=== PATIENT | male | born 1990 | race Caucasian/White ===

== ENCOUNTER 2024-02-11 22:15 | Emergency (ER) | payer OTHER, MEDICAID ==
[2024-02-11 22:28] LABS: BASOPHILS ABSOLUTE AUTO 0.1 x10^3/uL (0.0-0.2); BASOPHILS PERCENT AUTO 0.9 % (0.2-1.2); EOSINOPHILS ABSOLUTE AUTO 0.7 x10^3/uL (0.0-0.5); HEMATOCRIT 46.9 % (40.0-52.0); HEMOGLOBIN 16.7 g/dL (14.0-18.0); IMMATURE GRAN ABSOLUTE AUTO 0.04 x10^3/uL (0.00-0.07); LYMPHOCYTES ABSOLUTE AUTO 2.9 x10^3/uL (1.0-4.8); LYMPHOCYTES PERCENT AUTO 31.5 % (25.0-50.0); MEAN CORPUSCULAR HEMOGLOBIN 30.8 pg (26.0-32.0); MEAN CORPUSCULAR HGB CONC 35.6 g/dL (32.0-36.0); MEAN CORPUSCULAR VOLUME 86.4 fL (78.0-93.0); MONOCYTES ABSOLUTE AUTO 0.6 x10^3/uL (0.0-0.8); MONOCYTES PERCENT AUTO 6.1 % (2.0-11.0); NEUTROPHILS ABSOLUTE AUTO 4.8 x10^3/uL (1.8-7.7); NEUTROPHILS PERCENT AUTO 53.1 % (50.0-80.0); PLATELET COUNT,PLT 321 x10^3/uL (130-400); RED BLOOD CELL COUNT 5.43 x10^6/uL (4.5-6.0); WHITE BLOOD CELL COUNT,WBC 9.1 x10^3/uL (4.0-10.0)
[2024-02-11] MEDS: Sodium Chloride 0.9% 1,000 ML IV ONE (22:40)
[2024-02-11 22:49] LABS: A/G RATIO 1.18; ALBUMIN 4.5 g/dL (3.4-5.0); ALKALINE PHOSPHATASE 53 U/L (46-116); ASPARTATE AMNIOTRANSFERASE,AST 41 U/L (15-37); BILIRUBIN TOTAL 0.9 mg/dL (0.2-1.0); BLOOD UREA NITROGEN,BUN 9 mg/dL (7-18); CARBON DIOXIDE,CO2 29 mmol/L (21-32); CHLORIDE,CL 104 mmol/L (98-107); CREATININE 1.4 mg/dL (0.70-1.30); ETHANOL BLOOD MEDICAL 221 mg/dL (0-3); GLUCOSE RANDOM 97 mg/dL (70-99); POTASSIUM,K 3.4 mmol/L (3.5-5.1); PROTEIN TOTAL,TP 8.3 g/dL (6.4-8.2); SODIUM,NA 142 mmol/L (136-145)
[2024-02-11 22:53] LABS: ANION GAP 12.4 mmol/L (5-15); ESTIMATED GFR 68 mL/min (>=60)
[2024-02-11] MEDS: Iopamidol 612 MG/ML 100 ML Bottle IVPUSH ONE (23:22)
[2024-02-11] MEDS: Diphtheria,Pertussis(Acell),Tetanus Vaccine 0.5 ML Syringe IM ONE (23:50)
[2024-02-13 13:22] LABS: ALANINE AMINOTRANSFERASE,ALT 61 U/L (16-63)
== END 2024-02-12 00:14 | disposition home or self-care (01) ==
LOC: VM.ED 22:17
DX: S93.402A Sprain of unspecified ligament of left ankle, initial encounter (principal); S00.03XA Contusion of scalp, initial encounter; S00.81XA Abrasion of other part of head, initial encounter; S70.211A Abrasion, right hip, initial encounter; F10.120 Alcohol abuse with intoxication, uncomplicated; V27.49XA Other motorcycle driver injured in collision with fixed or stationary object in traffic accident, initial encounter; Y92.410 Unspecified street and highway as the place of occurrence of the external cause
CPT/HCPCS: 70450; 71260; 72125; 73610-LT; 74177; 80053; 80307; 85025; 90471; 90715; 96360; 99284; 99284-25; J7030; Q9967